=== PATIENT | male | born 1995 | race Two or more races ===

== ENCOUNTER 2019-02-21 14:49 | Emergency (ER) | payer OTHER ==
[~2019-02-21] VITALS: Ht 165.1 cm; Wt 44.5 kg
[~2019-02-21 14:49] MED LIST: LACO50TA2 PO
[2019-02-21] MEDS ORDERED: GASTROGRAFIN 30 ML SOL ONE ×2 (20:13→20:58)
[2019-02-21 22:53] VITALS: BP 101/65
== END 2019-02-22 02:37 | disposition home or self-care (01) ==
LOC: ER 14:56
DX: K94.23 Gastrostomy malfunction (principal)
CPT/HCPCS: 43762; 74018; 99284; Q9963